=== PATIENT | female | born 2005 | race Caucasian/White ===

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

== ENCOUNTER 2024-04-20 14:30 | Oncology outpatient (recurring) (ONCR) | payer MEDICAID, SELFPAY ==
[2024-04-13 14:41] VITALS: BP 113/60; PULSE 78; RESP 18; TEMP 36.9; O2SAT 98
[2024-04-13] MEDS: iron sucrose 200 MG in sodium chloride 0.9% (100 ml) 100 ML 220 MG IV (14:50)
[2024-04-13] MEDS: sodium chloride 0.9% 250 ML 75 ML IV (14:50)
[2024-04-13 15:44] VITALS: BP 109/45; PULSE 76; RESP 18; TEMP 36.7; O2SAT 100
[2024-04-15 14:40] VITALS: BP 108/49; PULSE 83; RESP 16; TEMP 36.8; O2SAT 99
[2024-04-15] MEDS: iron sucrose 200 MG in sodium chloride 0.9% (100 ml) 100 ML 220 MG IV (14:58)
[2024-04-15 15:35] VITALS: BP 98/55; PULSE 72; RESP 16; TEMP 36.3
[2024-04-17 10:49] VITALS: BP 116/71; PULSE 84; RESP 16; TEMP 36.7; O2SAT 100
[2024-04-17] MEDS: iron sucrose 200 MG in sodium chloride 0.9% (100 ml) 100 ML 220 MG IV (10:52)
[2024-04-17 11:34] VITALS: BP 100/66; PULSE 77; RESP 16; TEMP 36.3; O2SAT 100
[2024-04-20 14:44] VITALS: BP 108/56; PULSE 75; RESP 18; TEMP 36.6; O2SAT 98
[2024-04-20] MEDS: iron sucrose 200 MG in sodium chloride 0.9% (100 ml) 100 ML 220 MG IV (15:02)
[2024-04-20 15:43] VITALS: BP 100/64; PULSE 70; RESP 16; TEMP 36.4; O2SAT 98
== END 2024-04-20 23:59 | disposition home or self-care (01) ==
PROVIDERS: PCP Family Medicine; Visit Provider Family Medicine
DX: D50.8 Other iron deficiency anemias (principal); Z79.899 Other long term (current) drug therapy; Z53.9 Procedure and treatment not carried out, unspecified reason
CPT/HCPCS: 96365; J1756; J7050

== ENCOUNTER 2024-04-22 14:29 | Oncology outpatient (recurring) (ONCR) | payer MEDICAID, SELFPAY ==
[2024-04-22 14:50] VITALS: BP 123/63; PULSE 102; RESP 16; TEMP 37; O2SAT 100
[2024-04-22] MEDS: iron sucrose 200 MG in sodium chloride 0.9% (100 ml) 100 ML 220 MG IV (15:11)
[2024-04-22 15:41] VITALS: BP 115/78; PULSE 90; RESP 17; TEMP 36.6; O2SAT 95
== END 2024-05-21 23:59 | disposition home or self-care (01) ==
LOC: ONCMED 14:29
PROVIDERS: PCP Family Medicine; Visit Provider Family Medicine
DX: Z79.899 Other long term (current) drug therapy (principal); D50.8 Other iron deficiency anemias
CPT/HCPCS: 96365; J1756

== ENCOUNTER → 2024-10-28 10:07 | Outpatient (BNVA) | payer MEDICAID, SELFPAY | PROVIDERS: PCP Family Medicine; Visit Provider Nurse Practitioner Family | DX: L70.0 Acne vulgaris (principal); L81.4 Other melanin hyperpigmentation | CPT/HCPCS: 99203 ==